=== PATIENT | male | born 1995 | race Caucasian/White ===

== ENCOUNTER 2017-12-11 17:07 | Emergency (ER) | payer OTHER ==
[2017-12-11] MEDS: IBUPROFEN 600 MG TAB PO (20:25)
== END 2017-12-11 21:07 | disposition home or self-care (01) ==
LOC: FTE 17:07
DX: S99.912A Unspecified injury of left ankle, initial encounter (principal); W01.0XXA Fall on same level from slipping, tripping and stumbling without subsequent striking against object, initial encounter; Y92.9 Unspecified place or not applicable
CPT/HCPCS: 73610; 99283-25